=== PATIENT | male | born 1960 | race Caucasian/White ===

== ENCOUNTER 2016-07-30 18:41 | Emergency (ER) | payer BC ==
[2016-07-30 18:53] VITALS: BP 156/76; PULSE 92; RESP 20; TEMP 98.9
[2016-07-30] MEDS ORDERED: AMOXIC-POT CLAV 875MG STARTER 2 EACH TABLET PO STA (19:23)
--- NOTE | 2016-07-30 19:24 | ED ---
General Adult HPI - General Chief complaint: Skin/Abscess/Foreign Body Stated complaint: infection rt foot big toe foot and leg swelling Time Seen by Provider: 07/30/16 18:56 Source: patient, RN notes reviewed Mode of arrival: ambulatory Limitations: no limitations - History of Present Illness Initial comments: patient is a 56-year-old male who presents emergency room today with chief complaint of a infection to the great toe. Patient does admit that he noticed some increased pain swelling to the area approximately 3 days ago and has had some drainage. Does admit that he went to the family doctor advised coming here to the emergency room. Patient denies any other complaints or associated symptoms. patient states has had similar symptoms in the past and is followed up with podiatry. States never need to be admitted in the past. Patient denies any recent fever, chills, shortness of breath, chest pain, back pain, abdominal pain, nausea or vomiting, numbness or tingling, dysuria or hematuria, constipation or diarrhea, headaches or visual changes, or any other complaints. - Related Data Home Medications Medication Instructions Recorded Confirmed Atorvastatin [Lipitor] 80 mg PO HS 01/29/15 01/31/15 Calcium Carbonate [Calcium] 600 mg PO DAILY 01/29/15 01/29/15 Cholecalciferol [Vitamin D3] 1,000 unit PO DAILY@1200 01/29/15 01/29/15 Hydrochlorothiazide [Hydrodiuril] 25 mg PO DAILY 01/29/15 01/31/15 Levothyroxine Sodium [Synthroid] 137 mcg PO DAILY 01/29/15 01/29/15 Lisinopril 40 mg PO DAILY 01/29/15 01/31/15 [place]-3 Fatty Acids/Fish Oil [Fish 1 each PO DAILY 01/29/15 01/29/15 Oil 1,000 mg Softgel] metFORMIN HCL [Glucophage] 1,000 mg PO BID 01/29/15 01/31/15 Previous Rx's Medication Instructions Recorded Hydrocodone/Acetaminophen [[place] 1 - 2 each PO Q4HR PRN #30 tab 01/31/15 5-325] Amoxicillin/Potassium Clav 1 each PO Q12HR #20 tab 07/30/16 [Augmentin 875-125 Tablet] Allergies Allergy/AdvReac Type Severity Reaction Status Date / Time Sulfa (Sulfonamide Allergy tongue & Verified 07/30/16 18:53 Antibiotics) lip swelling aspirin AdvReac nosebleeds Verified 07/30/16 18:53 Review of Systems ROS Statement: Those systems with pertinent positive or pertinent negative responses have been documented in the HPI. ROS Other: All systems not noted in ROS Statement are negative. Past Medical History Past Medical History: Cancer, Diabetes Mellitus, Hyperlipidemia, Hypertension, Thyroid Disorder Additional Past Medical History / Comment(s): newly dx. w/lymphoma History of Any Multi-Drug Resistant Organisms: None Reported Additional Past Surgical History / Comment(s): partial thyroidectomy 01-07-15 Past Anesthesia/Blood Transfusion Reactions: No Reported Reaction Past Psychological History: No Psychological Hx Reported Smoking Status: Current every day smoker - Past Family History Mother Family Medical History: No Reported History General Exam - General Exam Comments Initial Comments: General: The patient is awake and alert, in no distress, and does not appear acutely ill. Eye: Pupils are equal, round and reactive to light, extra-ocular movements are intact. No nystagmus. There is normal conjunctiva bilaterally. No signs of icterus. Ears, nose, mouth and throat: There are moist mucous membranes and no oral lesions. Neck: The neck is supple, there is no tenderness or JVD. Cardiovascular: There is a regular rate and rhythm. No murmur, rub or gallop is appreciated. Respiratory: Lungs are clear to auscultation, respirations are non-labored, breath sounds are equal. No wheezes, stridor, rales, or rhonchi. Musculoskeletal: Normal ROM, no tenderness. Strength 5/5. Sensation intact. Pulses equal bilaterally 2+. Neurological: A&O x 3. CN II-XII intact, There are no obvious motor or sensory deficits. Coordination appears grossly intact. Speech is normal. Skin: patient does have also to the bottom of the right great toe. Does have some mild swelling. No lethargic streaking. Psychiatric: Cooperative, appropriate mood & affect, normal judgment. Limitations: no limitations Course Vital Signs 07/30/16 18:51 Temperature 98.9 F Pulse Rate 92 Respiratory 20 Rate Blood Pressure 156/76 O2 Sat by Pulse 99 Oximetry Medical Decision Making - Medical Decision Making patient's vital stable here in emergency room. Options were discussed with patient about admission to the hospital. States he does not want be admitted. States he would like to try oral antibiotic. She states is never been admitted in the past for this. Patient was advised that he needs follow-up with his ethyl blender over the next 2 days. Will be started on oral antibiotic. Since symptoms of return were discussed with the patient in detail. He states her stay and is in agreement. Disposition Clinical Impression: Diabetic foot ulcer Disposition: HOME SELF-CARE Condition: Good Instructions: Diabetic Foot Ulcers (ED) Additional Instructions: Please use medication as discussed. Please follow-up with ethyl blender/family doctor in the next 2 days of symptoms have not improved. Please return to emergency room if the symptoms increase or worsen or for any other concerns. Prescriptions: Amoxicillin/Potassium Clav [Augmentin 875-125 Tablet] 1 each PO Q12HR #20 tab Referrals: Kala Thomas PAC [Primary Care Provider] - 1-2 days Flash Riley DPM [STAFF PHYSICIAN] - 1-2 days Time of Disposition: 19:22
== END 2016-07-30 19:32 | disposition home or self-care (01) ==
LOC: EC 18:41
DX: E11.621 Type 2 diabetes mellitus with foot ulcer (principal); L97.519 Non-pressure chronic ulcer of other part of right foot with unspecified severity; E78.5 Hyperlipidemia, unspecified; I10 Essential (primary) hypertension; E07.9 Disorder of thyroid, unspecified; F17.200 Nicotine dependence, unspecified, uncomplicated; Z79.84 Long term (current) use of oral hypoglycemic drugs; Z79.899 Other long term (current) drug therapy; Z88.2 Allergy status to sulfonamides; Z88.6 Allergy status to analgesic agent
CPT/HCPCS: 87070; 87205; 99283

== ENCOUNTER → 2016-08-12 | Outpatient (CLI) | payer BC | END | disposition home or self-care (01) | LOC: RADUSWWP 12:03 | PROVIDERS: ATTEND Thoracic Surgery (Cardiothoracic Vascular Surgery) | DX: E13.621 Other specified diabetes mellitus with foot ulcer (principal); E63.8 Other specified nutritional deficiencies | CPT/HCPCS: 93923 ==

== ENCOUNTER → 2019-07-17 | Outpatient (CLI) | payer BC ==
--- NOTE | 2019-07-17 16:07 | XR ---
EXAMINATION TYPE: XR knee complete RT DATE OF EXAM: 07/17/2019 COMPARISON: NONE HISTORY: 59-year-old male right knee pain TECHNIQUE: 3 views FINDINGS: There is mild tricompartmental degenerative spurring. Moderate to large underlying suprapatellar knee joint effusion. Extensor mechanism appears intact. No acute fracture, subluxation, or dislocation se en. IMPRESSION: 1. Mild tricompartmental osteoarthrosis. 2. However, there is a moderate to large underlying knee joint effusion. MRI can assess for internal derangement as clinically indicated.
== END | disposition home or self-care (01) ==
LOC: RADXRYALE 15:47
PROVIDERS: ATTEND Physician Assistant Medical
DX: M17.11 Unilateral primary osteoarthritis, right knee (principal)

== ENCOUNTER → 2022-08-06 | Outpatient (CLI) | payer BC ==
--- NOTE | 2022-08-07 09:02 | CTL ---
EXAMINATION TYPE: CT Low Dose Lung DATE OF EXAM ORDERED: 08/06/2022 HISTORY: Current smoker. Lung cancer screening CT DLP: 142.[address] CTDI: 3.5 mGy Automated exposure control for dose reduction was used. SCREENING VISIT: Initial COMPARISON: None TECHNIQUE: Low dose computed tomography scan was performed through the chest at 1 mm thick sections a nd reconstructed images in the coronal plane at [address] DIAGNOSTIC QUALITY: Satisfactory FINDINGS: LUNG NODULES: Present, detailed below: 1. There is a 0.3 cm nodule in the periphery of the right upper lung field. Series 4 image 87. 2. Vascular anomaly within the left upper lung field, example image series 4 image 80. LUNGS: COPD: Severity: None Fibrosis: Severity: None Lymph nodes: None Other findings: None RIGHT PLEURAL SPACE: Effusion: None Calcification: None Thickening: None Pneumothorax: None LEFT PLEURAL SPACE: Effusion: None Calcification: None Thickening: None Pneumothorax: None HEART: Heart Size: Normal Coronary calcification: Moderate Pericardial effusion: None OTHER FINDINGS: Upper abdomen: Right adrenal gland is mildly thickened at 1.3 cm. Upper abdomen is otherwise unremark able. Bony thorax: Normal Supraclavicular region: Normal Other: Ascending thoracic aorta at the level the main pulmonary artery measures 3.4 cm. The main pul monary artery at the bifurcation measures 2.2 cm. IMPRESSION: Tiny nodule right lung. FOLLOW UP CT CHEST RECOMMENDATION: Follow-up low-dose CT chest [address] LUNG RAD: 2
== END | disposition home or self-care (01) ==
LOC: RADCTMAIN 17:07
PROVIDERS: ATTEND Internal Medicine Hematology & Oncology
DX: Z12.2 Encounter for screening for malignant neoplasm of respiratory organs (principal); F17.210 Nicotine dependence, cigarettes, uncomplicated; R91.1 Solitary pulmonary nodule
CPT/HCPCS: 71271

== ENCOUNTER 2023-01-15 22:08 | Emergency (ER) | payer BC ==
[2023-01-15 22:35] VITALS: RESP 18; TEMP 98.6
[2023-01-15 22:44] LABS: Basophils # (A) 0.1 k/uL (0-0.2); Basophils % (A) 1 %; Eosinophils # (A) 0.1 k/uL (0-0.7); Eosinophils % (A) 1 %; HCT 46.1 % (39.0-53.0); HGB 15.7 gm/dL (13.0-17.5); Lymphocytes # (A) 1.7 k/uL (1.0-4.8); Lymphocytes % (A) 24 %; MCH 31.1 pg (25.0-35.0); MCV 91.5 fL (80.0-100.0); Mean Platelet Volume 7.3; Monocytes # (A) 0.4 k/uL (0-1.0); Monocytes % (A) 5 %; Neutrophils # (A) 4.7 k/uL (1.3-7.7); Neutrophils % (A) 68 %; Platelet Count 130 k/uL (150-450); RBC 5.04 m/uL (4.30-5.90); RDW 12.4 % (11.5-15.5)
[2023-01-15 22:54] LABS: ALT 25 U/L (4-49); African American GFR (CKD) >90 (>60 ml/min/1.73 sqM); Anion Gap 10 mmol/L; Blood Urea Nitrogen 19 mg/dL (9-20); Calcium 9.5 mg/dL (8.4-10.2); Carbon Dioxide 26 mmol/L (22-30); Chloride 99 mmol/L (98-107); Glucose 240 mg/dL (74-99); Non-African American GFR(CKD) >90 (>60 ml/min/1.73 sqM); Sodium 135 mmol/L (137-145); Total Bilirubin 1.1 mg/dL (0.2-1.3)
[2023-01-15 22:59] LABS: AST 29 U/L (17-59); Alkaline Phosphatase 80 U/L (38-126); Potassium 4.8 mmol/L (3.5-5.1)
[2023-01-15 23:00] LABS: Albumin 4.9 g/dL (3.5-5.0); INR 0.9 (<1.2); Magnesium 1.8 mg/dL (1.6-2.3); Prothrombin Time 10.1 sec (10.0-12.5)
[2023-01-15 23:03] LABS: Partial Thromboplastin Time 21.6 sec (22.0-30.0)
--- NOTE | 2023-01-15 23:23 | ED ---
Chest Pain HPI - General Source: patient Mode of arrival: ambulatory Limitations: no limitations <Peter Montoya - Last Filed: 01/15/23 23:23> <Juan Francisco Lynch - Last Filed: 01/16/23 04:54> - General Chief Complaint: Chest Pain Stated Complaint: Chest Pain Time Seen by Provider: 01/15/23 23:23 - History of Present Illness Initial Comments: 62-year-old male presenting to the ED with chest pain. Patient states a few weeks ago started to feel pain to the left side of his chest. Pain is dull in nature. Pain is constant nature. No shortness of breath with this. (Peter Montoya) Dictation was produced using [employer] dictation software. please excuse any grammatical, word or spelling errors. Chief Complaint: 62-year-old male presents with left-sided chest pain History of Present Illness: Patient is 62-year-old male presents with several days of left-sided chest pain states that it's a dull and sometimes sharp pressure to his left lower chest. States that it's not associated diaphoresis or nausea. No shortness of breath. Patient denies any history of cardiac disease. He has history of hypertension diabetes rest up and take his medications as instructed. The ROS documented in this emergency department record has been reviewed and confirmed by me. Those systems with pertinent positive or negative responses have been documented in the HPI. All other systems are other negative and/or noncontributory. (Juan Francisco Lynch) - Related Data Home Medications Medication Instructions Recorded Confirmed Atorvastatin [Lipitor] 80 mg PO HS 01/29/15 09/09/16 Levothyroxine Sodium [Synthroid] 137 mcg PO DAILY 01/29/15 09/09/16 hydroCHLOROthiazide [Hydrodiuril] 25 mg PO DAILY 01/29/15 09/09/16 lisinopriL 40 mg PO DAILY 01/29/15 09/09/16 metFORMIN HCL [Glucophage] 1,000 mg PO BID 01/29/15 09/09/16 sitaGLIPtin PHOSPHATE [Januvia] 100 mg PO DAILY 08/12/16 09/09/16 Allergies Allergy/AdvReac Type Severity Reaction Status Date / Time Sulfa (Sulfonamide Allergy tongue & Verified 01/15/23 22:17 Antibiotics) lip swelling aspirin AdvReac nosebleeds Verified 01/15/23 22:17 Review of Systems ROS Other: All systems not noted in ROS Statement are negative. <Peter Montoya - Last Filed: 01/15/23 23:23> ROS Other: All systems not noted in ROS Statement are negative. <Juan Francisco Lynch - Last Filed: 01/16/23 04:54> ROS Statement: Those systems with pertinent positive or pertinent negative responses have been documented in the HPI. Past Medical History Past Medical History: Cancer, Diabetes Mellitus, Hyperlipidemia, Hypertension, Thyroid Disorder Additional Past Medical History / Comment(s): newly dx. w/lymphoma History of Any Multi-Drug Resistant Organisms: None Reported Additional Past Surgical History / Comment(s): partial thyroidectomy 01-07-15 Past Anesthesia/Blood Transfusion Reactions: No Reported Reaction Past Psychological History: No Psychological Hx Reported Smoking Status: Current every day smoker Past Alcohol Use History: Rare Past Drug Use History: None Reported - Past Family History Sister(s) Family Medical History: Diabetes Mellitus Mother Family Medical History: No Reported History <Peter Montoya - Last Filed: 01/15/23 23:23> General Exam Limitations: no limitations General appearance: alert, in no apparent distress Extremities exam: Present: normal inspection Back exam: Present: normal inspection Neurological exam: Present: alert <Peter Montoya - Last Filed: 01/15/23 23:23> <Juan Francisco Lynch - Last Filed: 01/16/23 04:54> - General Exam Comments Initial Comments: PHYSICAL EXAM: General Impression: Alert and oriented x3, not in acute distress HEENT: Normocephalic atraumatic, extra-ocular movements intact, pupils equal and reactive to light bilaterally, mucous membranes moist. Cardiovascular: Heart regular rate and rhythm Chest: Able to complete full sentences, no retractions, no tachypnea Abdomen: abdomen soft, non-tender, non-distended, no organomegaly Musculoskeletal: Pulses present and equal in all extremities, no peripheral edema Motor: no focal deficits noted Neurological: CN II-XII grossly intact, no focal motor or sensory deficits noted Skin: Intact with no visualized rashes Psych: Normal affect and mood (Juan Francisco Lynch) Course Vital Signs 01/15/23 01/16/23 01/16/23 22:15 01:53 04:33 Temperature 98.6 F Pulse Rate 89 76 77 Respiratory 18 18 18 Rate Blood Pressure 201/91 188/95 174/95 O2 Sat by Pulse 99 97 98 Oximetry Chest Pain MDM <Peter Montoya - Last Filed: 01/15/23 23:23> <Juan Francisco Lynch - Last Filed: 01/16/23 04:54> - MDM Quicknote portion performed. Signed Peter Montoya PA-C (Peter Montoya) My EKG interpretation: Ventricular rate 85, sinus rhythm,. 160, QRS 107, QTC 411. No RI prolongation, no QTC prolongation, no ST or T-wave changes noted. Overall, this EKG is unremarkable Was pt. sent in by a medical professional or institution ([facility] Torres, COPY MANAGER, urgent care, hospital, or [facility]...) When possible be specific @ -No Did you speak to anyone other than the patient for history (EMS, parent, family, police, friend...)? What history was obtained from this source @ -No Did you review nursing and triage notes (agree or disagree)? Why? @ -I reviewed and agree with nursing and triage notes Were old charts reviewed (outside hosp., previous admission, EMS record, old EKG, old radiological studies, urgent care reports/EKG's, [facility] records)? Report findings @ -No old charts were reviewed Differential Diagnosis (chest pain, altered mental status, abdominal pain women, abdominal pain men, vaginal bleeding, musculoskeletal, weakness, fever, dyspnea, syncope, headache, dizziness, GI bleed, back pain, seizure, CVA, palpatations, mental health)? @ -Differential Chest Pain: Stable Angina, Unstable Angina, STEMI, NSTEMI Aortic Dissection, Pneumothorax, Musculoskeletal, Esophageal Spasm GERD, Cholecystitis, Pancreatitis, Zoster, this is not meant to be an all-inclusive list. EKG interpreted by me (3pts min.). @ -See above X-rays interpreted by me (1pt min.). @ -X-ray shows no acute processes. CT interpreted by me (1pt min.). @ -None done U/S interpreted by me (1pt. min.). @ -None done What testing was considered but not performed or refused? (CT, X-rays, U/S, labs)? Why? @ -None What meds were considered but not given or refused? Why? @ -None Did you discuss the management of the patient with other professionals (professionals i.e. , PA, COPY MANAGER, lab, RT, psych nurse, high school social studies tutor, shower screen installer, teacher, probation and parole officer, vocational case manager)? Give summary @ -No Was smoking cessation discussed for >3mins.? @ -No Was critical care preformed (if so, how long)? @ -No Were there social determinants of health that impacted care today? How? (Homelessness, low income, unemployed, alcoholism, drug addiction, transportation, low edu. Level, literacy, decrease access to med. care, senior care, rehab)? @ -No Was there de-escalation of care discussed even if they declined (Discuss DNR or withdrawal of care, Hospice)? DNR status @ -No What co-morbidities impacted this encounter? (DM, HTN, Smoking, COPD, CAD, Cancer, CVA, ARF, Chemo, Hep., AIDS, mental health diagnosis, sleep apnea, morbid obesity)? @ -None Was patient admitted / discharged? Hospital course, mention meds given and route, prescriptions, significant lab abnormalities, going to OR and other pertinent info. @ -2-year-old male presents emergency Department with a 2 which is very typical features. Vital signs are stable. He does have significant risk factors. EKG is unremarkable. Repeat EKG shows no dynamic changes. Labs are within acceptable limits. Patient has 2 negative troponins. Observation admission was offered to patient he would prefer to be discharged follow-up with his primary care doctor for further testing including outpatient stress test. Return precautions discussed. Patient given aspirin. Patient be discharged. Undiagnosed new problem with uncertain prognosis? @ -No Drug Therapy requiring intensive monitoring for toxicity (Heparin, Nitro, Insulin, Cardizem)? @ -No Were any procedures done? @ -No Diagnosis/symptom? Acute, or Chronic, or Acute on Chronic? Uncomplicated (without systemic symptoms) or Complicated (systemic symptoms)? @ -Atypical chest pain with typical features Side effects of treatment? @ -No Exacerbation, Progression, or Severe Exacerbation? @ -No Poses a threat to life or bodily function? How? (Chest pain, [place], NH, pneumonia, PE, COPD, DKA, ARF, appy, cholecystitis, CVA, Diverticulitis, Homicidal, Suicidal, threat to staff... and all critical care pts) @ -No (Juan Francisco Lynch) Disposition <Peter Montoya - Last Filed: 01/15/23 23:23> Is patient prescribed a controlled substance at d/c from ED?: No Time of Disposition: 04:54 <Juan Francisco Lynch - Last Filed: 01/16/23 04:54> Clinical Impression: Chest pain Disposition: HOME SELF-CARE Condition: Fair Instructions (If sedation given, give patient instructions): Chest Pain (ED) Referrals: Moses Barnes DO [Primary Care Provider] - 1-2 days
--- NOTE | 2023-01-16 00:16 | XR ---
EXAM: XR Chest, 2 Views CLINICAL HISTORY: ITS.REASON XR Reason: Chest Pain TECHNIQUE: Frontal and lateral views of the chest. COMPARISON: Chest single view dated 01/31/2015. FINDINGS: Lungs: Unremarkable. No consolidation. The pulmonary vasculature demonstrates no significant radiographic abnormality. Pleural space: Unremarkable. No pneumothorax. No large pleural effusion. Heart: Unremarkable. No cardiomegaly. Mediastinum: Unremarkable. No significant abnormality identified. The trachea is midline. Bones/joints: Chronic degenerative bridging osteophytes noted involving the thoracic spine. No acute osseous abnormality. Tubes, lines and devices: The right internal jugular approach portacatheter has been removed. IMPRESSION: No focal consolidation or acute cardiopulmonary process identified.
[2023-01-16] MEDS ORDERED: ASPIRIN 81 MG PO STA (01:54)
[2023-01-16 04:57] VITALS: BP 174/95; PULSE 77
== END 2023-01-16 05:27 | disposition home or self-care (01) ==
LOC: EC 22:08
DX: R07.89 Other chest pain (principal); E11.9 Type 2 diabetes mellitus without complications; E78.5 Hyperlipidemia, unspecified; I10 Essential (primary) hypertension; E07.9 Disorder of thyroid, unspecified; F17.200 Nicotine dependence, unspecified, uncomplicated; Z79.899 Other long term (current) drug therapy; Z79.890 Hormone replacement therapy; Z79.84 Long term (current) use of oral hypoglycemic drugs; Z88.2 Allergy status to sulfonamides; Z88.6 Allergy status to analgesic agent
CPT/HCPCS: 36415; 71046; 80053; 83735; 84484; 85025; 85610; 85730; 93005; 99285

== ENCOUNTER → 2023-08-09 | Outpatient (CLI) | payer BC ==
--- NOTE | 2023-08-15 22:35 | CTL ---
EXAMINATION TYPE: CT Low Dose Lung DATE OF EXAM ORDERED: 08/09/2023 HISTORY: 62-year-old male current smoker with 40 pack-year history. Z87.891 PERSONAL HISTORY OF DAI ROSITA DEPENDENCE. Lung cancer screening CT DLP: 136.[address] CTDI: 3.5 mGy Automated exposure control for dose reduction was used. SCREENING VISIT: Annual follow-up COMPARISON: 08/06/2022 TECHNIQUE: Low dose computed tomography scan was performed through the chest at 1 mm thick sections a nd reconstructed images in multiple planes at 1 mm and [address] DIAGNOSTIC QUALITY: Satisfactory FINDINGS: Heart is normal size without pericardial effusion. LAD and RCA coronary artery calcifications are pre sent. Borderline ectasia upper descending thoracic aorta 3.0 cm. Minimal atherosclerotic calcifications in the aorta. Conventional arch vessel branching anatomy. Asymmetrically larger left lobe of the thyroid gland unchanged from 2022. No thoracic lymphadenopathy by CT size criteria. Mild diffuse bronchial wall thickening. Mild emphysematous change. A few scattered small calcified granulomas are noted measuring 4 mm and smaller. No new suspicious pu lmonary nodule is identified. Visualized upper abdomen shows a large exophytic cyst partially visualized measuring at least 7.0 cm Low-density nodule right adrenal gland measuring 1.5 cm is unchanged. Attenuation characteristics com patible with a benign lipid rich adrenal adenoma. Bones: DISH throughout the thoracic spine. IMPRESSION: 1. LungRADS 2, benign. Evidence of prior granulomatous disease. 2. COPD with mild emphysema. CT LUNG RAD AND CT CHEST RECOMMENDATION: Lung-Rad 2 Benign Appearance or Behavior: Continue annual sc reening with LDCT in 12 months. S Modifier (other clinically significant findings): None
== END | disposition home or self-care (01) ==
LOC: RADCTMAIN 14:51
PROVIDERS: ATTEND Family Medicine
DX: Z12.2 Encounter for screening for malignant neoplasm of respiratory organs (principal); J43.9 Emphysema, unspecified; F17.210 Nicotine dependence, cigarettes, uncomplicated; J44.9 Chronic obstructive pulmonary disease, unspecified; Z87.09 Personal history of other diseases of the respiratory system
CPT/HCPCS: 71271